=== PATIENT | male | born 1960 | race African-American/Black ===

== ENCOUNTER 2016-07-13 11:36 | Emergency (ER) | payer OTHER ==
[2016-07-13] MEDS ORDERED: ASPIRIN PO STA (11:48)
[2016-07-13] MEDS ORDERED: G.I. COCKTAIL PO ONE (12:13)
[2016-07-13 12:16] LABS: MANUAL DIFF NEEDED? NO
--- NOTE | 2016-07-13 12:28 | PROVIDER DOCUMENTATION ---
HPI-Chest Pain - General Source: patient - History of Present Illness-CP Location: reports: other (R side) Chest Pain Radiation: reports: no radiation Quality of Pain: reports: pressure Severity in ED: mild Onset/Duration: this morning Timing: still present, intermittent Context/Activities at Onset: reports: light activity Modifying Factors: improves with: nothing Associated Symptoms: reports: denies symptoms Nitro Today/Relief: no nitro taken today Aspirin Treatment Today: no aspirin today Similar Symptoms Previously?: No Recently Seen Here or By Another Healthcare Provider: No <Eda Ernst - Last Filed: 07/13/16 13:24> <Hair Montgomery - Last Filed: 07/13/16 13:29> - General Chief Complaint: Chest Pain Stated Complaint: Chest Pain Time Seen by Provider: 07/13/16 12:07 Allergies/Adverse Reactions: Patient Allergies Allergy/AdvReac Type Severity Reaction Status Date / Time No Known Allergies Allergy Verified 07/13/16 11:46 Home Medications: Home Medication List Medication Instructions Recorded Confirmed Last Taken Type Amlodipine [Norvasc] 10 mg PO DAILY 07/13/16 07/13/16 1 Day Ago History Clonidine HCl 0.1 mg PO TID PRN #60 tablet 07/13/16 Unknown Rx Hydrochlorothiazide 25 mg PO DAILY 07/13/16 07/13/16 1 Day Ago History - History of Present Illness-CP Nature of Presenting Problem: Pt is 55 y/o M presents to the ED with chest pain. Pt states chest pain started at 0500. Pt denies radiation of pain. Pt denies N/V/D. (Eda Ernst) Review of Systems - Adult - REVIEW OF SYSTEMS - ADULT Constitutional: denies: chills, fever Eyes: denies: blurred vision, double vision Ears, Nose, Mouth & Throat: denies: ear pain, nose pain, throat pain Cardiovascular: reports: chest pain, irregular heart rate (sky). denies: heart murmur Respiratory: denies: cough, shortness of breath, wheezing Gastrointestinal: denies: abdominal pain, diarrhea, nausea, vomiting Genitourinary: denies: dysuria, hematuria Musculoskeletal: denies: bone pain, joint pain, neck pain Integumentary: denies: hives, itching Neurological: denies: dizziness/vertigo, headache/migraines Psychiatric: reports: no symptoms reported Endocrine: reports: no symptoms reported Hematologic/Lymphatic: reports: no symptoms reported Allergic/Immunologic: reports: no symptoms reported All Other Systems: Reviewed and Negative <Eda Ernst - Last Filed: 07/13/16 13:24> Past History - Adult - PAST MEDICAL HISTORY-ADULT Review of Records: reports: Nursing Assessment Review, Medications Reviewed, Social history reviewed & non-contributory. Major Childhood Illnesses: reports: denies history Cardiovascular: reports: HTN Respiratory: reports: denies history Gastrointestinal: reports: GERD Obstetrical/Gynecological: reports: denies history Genitourinary: reports: denies history Musculoskeletal: reports: denies history Neurological: reports: denies history Endocrine/Immune: reports: denies history Other Conditions: reports: denies history - PRIOR SURGERIES/PROCEDURES Surgical/Procedure History: reports: reviewed, not pertinent - IMMUNIZATION STATUS Childhood Immunizations: See Nurse Assessment Flu Vaccine: See Nurse Assessment - FAMILY HISTORY Family History: reviewed, not pertinent - SOCIAL HISTORY Smoking: quit less than 1 year, cigarettes Substance Use: denies Living Situation: family <Eda Ernst - Last Filed: 07/13/16 13:24> Physical Exam-General - PHYSICAL EXAM-ADULT Initial Vital Signs Reviewed: Yes - CONSTITUTIONAL General Appearance: appears well, alert, no apparent distress - EYES Eyes: PERRL/EOMI, pink conjunctivae, fundi clear, no AV nicking - HEAD, EARS, NOSE, MOUTH & THROAT HENMT: normocephalic/atraumatic, moist mucous membranes, normal ENT inspection, TMs normal, pharynx normal - NECK Neck: non-tender, full range of motion, supple, normal inspection - RESPIRATORY Respiratory: chest non-tender, lungs clear, normal breath sounds, no pleuratic chest pain, no respiratory distress, no accessory muscle use - CARDIOVASCULAR Cardiovascular: normal peripheral pulses, no edema, no gallop, no JVD, no murmur , bradycardia - GASTROINTESTINAL (ABDOMEN) Abdominal Exam: normal bowel sounds, non tender, soft, no organomegaly, no pulsatile mass - LYMPHATIC Lymphatic: no adenopathy - MUSCULOSKELETAL Back Exam: normal inspection, no CVA tenderness, no vertebral tenderness Extremity: normal range of motion, non-tender, normal gait, normal inspection, no pedal edema, no calf tenderness - SKIN Integumentary: normal color, normal turgor, warm/dry - NEUROLOGIC Neurologic: grossly normal - PSYCHIATRIC Psych/Mental Status: normal mood/affect, oriented x 3 <Eda Ernst - Last Filed: 07/13/16 13:24> Progress - EKG 1 Time of EKG reading by physician:: 11:59 EKG Read and Signed by:: Hair Montgomery EKG Interpretation (*Must complete 3 of following elements*): Abnormal Rate: 49 Rhythm: sinus bradycardia Comments: otherwise normal ECG - XRAY 1 XRAY: Bilateral XRAY Study: Chest Impression: Abnormal XRAY Interpretation: COPD <Eda Ernst - Last Filed: 07/13/16 13:24> - REASSESSMENT Reassessment #1 Time Reassessed: 13:27 (pt felt fine when his BP stabalized,. he had stopped some of his medication because it didn't make him feel right. he will return to his doctor in [place] in 1 week) <Hair Montgomery - Last Filed: 07/13/16 13:29> - PLAN OF CARE/RESULTS Progress/Plan/Lab Results: Orders Category Date Time Status Cardiac Monitoring DIRECTED Care 07/13/16 11:48 Active Oxygen Therapy- ED Nursing DIRECTED Care 07/13/16 11:48 Active Saline Loc NOW Care 07/13/16 11:48 Active CHEST-2 VIEWS [RAD] Stat Exams 07/13/16 11:48 Taken CBC WITH ELECTRONIC DIFF [HEME] Stat Lab 07/13/16 12:06 Results CK PROFILE [SP CHEM] Stat Lab 07/13/16 12:06 Received COMPREHENSIVE METABOLIC PANEL [CHEM] Stat Lab 07/13/16 12:06 Received MAGNESIUM [CHEM] Stat Lab 07/13/16 12:06 Received PRO B-NATRIURETIC PEPTIDE Stat Lab 07/13/16 12:06 Received TROPONIN T Stat Lab 07/13/16 12:06 Received Aspirin Med 07/13/16 11:48 Discontinued 325 mg PO STAT STA Lido/Pagan Alk/Al&mg Hydrox [G.i. Cocktail] Med 07/13/16 12:13 Discontinued 30 ml PO NOW ONE EKG [EKG] Stat Ther 07/13/16 11:48 Ordered Vital Signs - 24 hr 07/13/16 11:39 Pulse Rate 52 L Respiratory 22 Rate Blood Pressure 177/109 O2 Sat by Pulse 100 Oximetry Laboratory Tests 07/13/16 07/13/16 07/13/16 12:06 12:06 12:06 WBC RBC Hgb Hct MCV MCH MCHC RDW Std Deviation Plt Count MPV Immature Gran % (Auto) Neut % (Auto) Lymph % (Auto) [place] % (Auto) Eos % (Auto) Baso % (Auto) Immature Gran # (Auto) Neut # (Auto) Lymph # (Auto) [place] # (Auto) Eos # (Auto) Baso # (Auto) Sodium 138 Potassium 4.0 Chloride 102 Carbon Dioxide 29 Anion Gap 7 BUN 16 Creatinine 1.6 H Estimated GFR/1.73 m2 45 BUN/Creatinine Ratio 10 Glucose 90 Calculated Osmolality 276 Calcium 9.3 Magnesium 2.3 Total Bilirubin 0.70 AST 43 H ALT 22 Alkaline Phosphatase 94 Creatine Kinase 663 H Creatine Kinase Index 0.6 CK-MB (CK-2) 3.99 Troponin T < 0.010 [id number] Pept 47 Total Protein 6.4 Albumin 4.2 Globulin 2.0 Albumin/Globulin Ratio 2.0 07/13/16 12:06 WBC 3.42 L RBC 4.62 L Hgb 14.3 Hct 40.5 L MCV 87.7 MCH 31.0 MCHC 35.3 RDW Std Deviation 11.2 L Plt Count 173 MPV 9.8 Immature Gran % (Auto) 0.0 Neut % (Auto) 43.6 Lymph % (Auto) 33.0 [place] % (Auto) 16.7 H Eos % (Auto) 6.1 Baso % (Auto) 0.6 Immature Gran # (Auto) 0.00 Neut # (Auto) 1.49 Lymph # (Auto) 1.13 L [place] # (Auto) 0.57 Eos # (Auto) 0.21 Baso # (Auto) 0.02 Sodium Potassium Chloride Carbon Dioxide Anion Gap BUN Creatinine Estimated GFR/1.73 m2 BUN/Creatinine Ratio Glucose Calculated Osmolality Calcium Magnesium Total Bilirubin AST ALT Alkaline Phosphatase Creatine Kinase Creatine Kinase Index CK-MB (CK-2) Troponin T [id number] Pept Total Protein Albumin Globulin Albumin/Globulin Ratio (Eda Ernst) Departure <Eda Ernst - Last Filed: 07/13/16 13:24> - Departure Time of Disposition Order: 13:25 Certified Medical Emergency: Emergent <Hair Montgomery - Last Filed: 07/13/16 13:29> - Departure DIAGNOSIS: Hypertension Qualifiers: Hypertension type: essential hypertension Qualified Code(s): I10 - Essential ( primary) hypertension Disposition: HOME 01 Condition: Stable Additional Instructions: fu with your [facility] in [place] on return, untill then take the clonidine 1-2 , 2-3x/day to keep the BP less than 140/9- ED Follow Up Instructions: You have been treated by a care provider in the Emergency Department. These instructions are being provided to you so you can have an understanding of how to care for yourself upon discharge. Upon discharge from the Emergency Department, you are responsible for making arrangements for follow-up care by a physician of your choice. Take all prescribed medications as directed. Return to the Emergency Department immediately for any new or worsening symptoms. You may call the Physician Referral phone number at [phone] to obtain a list of Physicians who are taking new patients. Prescriptions: Clonidine HCl 0.1 mg PO TID PRN #60 tablet PRN Reason: hypertension Referrals: None,PCP [Primary Care Provider] - Attestation - Scribe Verification/Attestation Scribe:: Eda Ernst Acting as Scribe for:: Hair Montgomery Scribe documention review:: This chart was documented by a scribe and accurately reflects the service the provider performed and the decisions made by the provider. <Eda Ernst - Last Filed: 07/13/16 13:24> Physician Attestation
[2016-07-13] MEDS ORDERED: CATAPRES PO ONE (12:31)
[2016-07-13 13:10] LABS: BASO% 0.6 % (0.0-0.8); EOS# 0.21 X1000 (0.0-0.7); EOS% 6.1 % (0.0-10.0); HEMATOCRIT 40.5 % (42.0-52.0); HEMOGLOBIN 14.3 g/dL (14.0-18.0); LYMPH# 1.13 X1000 (1.2-3.4); MCHC 35.3 g/dL (33-37); MCV 87.7 FL (81-99); MONO# 0.57 X1000 (0.11-0.59); MONO% 16.7 % (1.7-9.3); MPV 9.8 FL (7.4-10.4); NEUT% 43.6 % (42.2-75.2); PLT 173 X1000 (130-400); RBC 4.62 XMIL (4.7-6.1)
[2016-07-13 13:11] LABS: ALBUMIN 4.2 g/dL (3.5-5.0); CALCIUM 9.3 mg/dL (8.8-10.2); MAGNESIUM 2.3 mg/dL (1.5-2.7); TOTAL BILIRUBIN 0.7 mg/dL (0.20-1.00); TOTAL PROTEIN 6.4 g/dL (6.3-8.3)
[2016-07-13 13:12] LABS: CK INDEX 0.6 (0.0-2.5); CK-MB 3.99 ng/mL (0.0-5.0)
--- NOTE | 2016-07-13 13:42 | Diag Imaging Result Document ---
PROCEDURE NAME: CHEST-2 VIEWS - 07/13/2016 TWO VIEWS OF THE CHEST: FINDINGS: There is probable COPD. There is no evidence of acute cardiac or pulmonary disease. There are no previous studies. IMPRESSION: COPD.
[2016-07-13 13:57] VITALS: BP 127/79
--- NOTE | 2016-07-13 14:10 | EKG Report ---
Test Performed on : 07/13/2016 11:59:31 AM Test Reason : CHEST PAIN Blood Pressure : / mmHG Vent. Rate : 049 BPM Atrial Rate : 049 BPM P-R Int : 162 ms QRS Dur : 094 ms QT Int : 470 ms P-R-T Axes : 069 034 024 degrees QTc Int : 424 ms Sinus bradycardia. Otherwise normal ECG No previous ECGs available Unconfirmed Result
== END 2016-07-13 13:56 | disposition home or self-care (01) ==
LOC: P.ED 11:36
DX: I10 Essential (primary) hypertension (principal); R07.9 Chest pain, unspecified; R00.1 Bradycardia, unspecified; Z87.891 Personal history of nicotine dependence; R94.31 Abnormal electrocardiogram [ECG] [EKG]; Z79.899 Other long term (current) drug therapy
CPT/HCPCS: 71020; 80053; 82550; 82553; 83735; 83880; 84484; 85025; 93005; 99284